=== PATIENT | male | born 1980 | race Caucasian/White ===

== ENCOUNTER 2017-12-20 12:04 | Emergency (ER) | payer OTHER ==
[~2017-12-20] VITALS: Ht 182.9 cm; Wt 74.8 kg
[~2017-12-20 12:04] MED LIST: CIPRO500 MG PO; DOXYCYCLINE 10100 MG PO; FLAGYL500 MG PO; HYDROCODONE-AP1 EAC6 PO; IBUPROFEN 800800 M1 PO; NORCO 5-325 TA1 EACH PO; ONDANSETRON HCL4 M2 PO; PHENERGAN 25 MG25 M1 PO; TRAMADOL; ZOLOFT 50 MG TA50 M1 PO
[2017-12-20] MEDS ORDERED: NORCO 5-325 TA1 EAC1 PO (12:49)
[2017-12-20 13:28] VITALS: BP 147/97
== END 2017-12-20 13:29 | disposition home or self-care (01) ==
LOC: M.ERS 12:04
DX: S62.101A Fracture of unspecified carpal bone, right wrist, initial encounter for closed fracture (principal); Z86.14 Personal history of Methicillin resistant Staphylococcus aureus infection; Z88.5 Allergy status to narcotic agent; W18.39XA Other fall on same level, initial encounter; Y93.89 Activity, other specified; Y92.89 Other specified places as the place of occurrence of the external cause; Y99.8 Other external cause status

== ENCOUNTER → 2018-04-22 | Outpatient (CLI) | payer OTHER ==
[~2018-04-22] MED LIST changes: +NORCO 5-325 TA1 EAC1 PO
== END ==
LOC: M.CT 08:30
DX: S62.001A Unspecified fracture of navicular [scaphoid] bone of right wrist, initial encounter for closed fracture (principal); X58.XXXA Exposure to other specified factors, initial encounter; Y93.89 Activity, other specified; Y92.89 Other specified places as the place of occurrence of the external cause; Y99.8 Other external cause status

== ENCOUNTER 2020-07-30 13:43 | Emergency (ER) | payer OTHER ==
[~2020-07-30] VITALS: Ht 182.9 cm; Wt 74.8 kg
[2020-07-30] MEDS ORDERED: IBUPROFEN 600600 M1 PO (14:45)
[2020-07-30] MEDS ORDERED: NORCO5 PO (14:45)
[2020-07-30 15:09] VITALS: BP 152/102
== END 2020-07-30 15:10 | disposition home or self-care (01) ==
LOC: M.ERS 13:43
DX: S62.397A Other fracture of fifth metacarpal bone, left hand, initial encounter for closed fracture (principal); Z86.14 Personal history of Methicillin resistant Staphylococcus aureus infection; Z88.5 Allergy status to narcotic agent; W22.8XXA Striking against or struck by other objects, initial encounter; Y93.89 Activity, other specified; Y92.89 Other specified places as the place of occurrence of the external cause; Y99.8 Other external cause status